=== PATIENT | female | born 1980 | race Caucasian/White ===

== ENCOUNTER 2017-03-29 01:03 | Emergency (ER) | payer OTHER ==
[2017-03-29 01:33] VITALS: BP 148/88; PULSE 66; TEMP 97.5; BMI 26.6
[2017-03-29] MEDS ORDERED: IBUPROFEN 400 MG TABLET (FP) PO ONE ×2 (01:47→02:04)
[2017-03-29] MEDS ORDERED: PENICILLIN V POTASSIUM 500 MG TABLET PO ONE (01:47)
--- NOTE | 2017-03-29 01:51 | PDOC ---
History of Present Illness - General History Source: Patient <Rikki Simons - Last Filed: 03/29/17 01:46> - General History Source: Patient Exam Limitations: No Limitations - History of Present Illness Initial Comments: 03/29/17 01:53 The patient is a 37-year-old female, with no significant past medical history, who presents to the ED with a toothache. On exam patient points to the right side of her upper/lower face posteriorly as the site of her pain. Her last menstrual period was last month and she does not think she is . She denies having any other symptoms. PCP: Dr. Edgar <Trixie Carvajal - Last Filed: 03/29/17 01:55> - General Chief Complaint: Toothache Stated Complaint: TOOTHACHE Time Seen by Provider: 03/29/17 01:42 Past History - Psycho/Social/Smoking Cessation Hx Suicidal Ideation: No Smoking History: Never smoked Have you smoked in the past 12 months: No Information on smoking cessation initiated: No Hx Alcohol Use: No Drug/Substance Use Hx: No Substance Use Type: Alcohol <Rikki Simons - Last Filed: 03/29/17 01:46> <Trixie Carvajal - Last Filed: 03/29/17 01:55> - Past Medical History Allergies/Adverse Reactions: Allergies Allergy/AdvReac Type Severity Reaction Status Date / Time No Known Allergies Allergy Verified 11/18/14 17:18 Home Medications: Ambulatory Orders Ibuprofen 800 mg PO TID #30 tablet 03/29/17 Oxycodone HCl/Acetaminophen [Percocet 5-325 mg Tablet] 1 - 2 tab PO Q6H #20 tablet MDD 4 03/29/17 Penicillin V Potassium [Pen Vee K -] 500 mg PO TID #30 tablet 03/29/17 Review of Systems - Review of Systems Able to Perform ROS?: Yes Comments:: 03/29/17 01:54 CONSTITUTIONAL: Absent: fever, no chills, no fatigue EYES: Absent: visual changes ENT: Present: toothache Absent: ear pain, no sore throat CARDIOVASCULAR: Absent: chest pain, no palpitations RESPIRATORY: Absent: cough, no SOB GI: Absent: abdominal pain, no nausea, no vomiting, no constipation, no diarrhea GENITOURINARY: Absent: dysuria, no frequency, no hematuria MUSKULOSKELETAL: Absent: back pain, no arthralgia, no myalgia SKIN: Absent: rash NEURO: Absent: headache <Trixie Carvajal - Last Filed: 03/29/17 01:55> *Physical Exam - Vital Signs Last Vital Signs Temp Pulse Resp BP Pulse Ox 97.5 F L 66 14 148/88 100 03/29/17 01:30 03/29/17 01:30 03/29/17 01:30 03/29/17 01:30 03/29/17 01:30 <Rikki Simons - Last Filed: 03/29/17 01:46> - Vital Signs Last Vital Signs Temp Pulse Resp BP Pulse Ox 97.5 F L 66 14 148/88 100 03/29/17 01:30 03/29/17 01:30 03/29/17 01:30 03/29/17 01:30 03/29/17 01:30 - Physical Exam Comments: 03/29/17 01:54 GENERAL: Well-appearing, well-nourished. No apparent distress. HEENT: Normocephalic, atraumatic. PERRL, EOM intact. +Erythema of right lower molar region CARDIOVASCULAR: Normal S1, S2. Regular rate and rhythm. PULMONARY: Clear to auscultation bilaterally. ABDOMEN: Soft, non-distended, non-tender. EXTREMITIES: Normal ROM in all four extremities. No gross deformities. SKIN: Warm, dry. No rash NEUROLOGICAL: No focal neurological deficits. <Trixie Carvajal - Last Filed: 03/29/17 01:55> Medical Decision Making - Medical Decision Making 03/29/17 01:52 Dr. Simons: The scribe's documentation has been prepared under my direction and personally reviewed by me in its entirery. I confirm that the note above accurately reflects all work, treatment, procedures, and medical decision making performed by me. <Rikki Simons - Last Filed: 03/29/17 01:46> *DC/Admit/Observation/Transfer - Discharge Dispostion Admit: No <Rikki Simons - Last Filed: 03/29/17 01:46> - Attestations Scribe Attestion: 03/29/17 01:55 Documentation prepared by Trixie Carvajal, acting as medical device assembler for Rikki Simons MD. <Trixie Carvajal - Last Filed: 03/29/17 01:55> Diagnosis at time of Disposition: Pain, dental - Discharge Dispostion Disposition: HOME - Prescriptions Prescriptions: Ibuprofen 800 mg PO TID #30 tablet Penicillin V Potassium [Pen Vee K -] 500 mg PO TID #30 tablet Oxycodone HCl/Acetaminophen [Percocet 5-325 mg Tablet] 1 - 2 tab PO Q6H #20 tablet MDD 4 - Referrals Referrals: Louisa Mcfarland MD [Primary Care Provider] - - Patient Instructions Printed Discharge Instructions: DI for Dental Pain Additional Instructions: Please follow up with your dentist as soon as possible. Take medication as directed.
== END 2017-03-29 02:17 | disposition home or self-care (01) ==
LOC: JER 01:03
DX: K08.89 Other specified disorders of teeth and supporting structures (principal)
CPT/HCPCS: 99282-25

== ENCOUNTER 2017-06-13 18:46 | Emergency (ER) | payer OTHER ==
[2017-06-13 18:57] VITALS: BP 125/77; PULSE 85; TEMP 99.2; BMI 24.2
--- NOTE | 2017-06-13 19:34 | PDOC ---
History of Present Illness - General Chief Complaint: Pain Stated Complaint: CYST Time Seen by Provider: 06/13/17 19:34 Past History - Past Medical History Allergies/Adverse Reactions: Allergies Allergy/AdvReac Type Severity Reaction Status Date / Time No Known Allergies Allergy Verified 06/13/17 18:56 Home Medications: Ambulatory Orders Ibuprofen 800 mg PO TID #30 tablet 03/29/17 NK [No Known Home Medication] 03/29/17 Oxycodone HCl/Acetaminophen [Percocet 5-325 mg Tablet] 1 - 2 tab PO Q6H #20 tablet MDD 4 03/29/17 Penicillin V Potassium [Pen Vee K -] 500 mg PO TID #30 tablet 03/29/17 - Suicide/Smoking/Psychosocial Hx Smoking History: Never smoked Have you smoked in the past 12 months: No Hx Alcohol Use: No Drug/Substance Use Hx: No Substance Use Type: Alcohol *Physical Exam - Vital Signs Last Vital Signs Temp Pulse Resp BP Pulse Ox 99.2 F 85 20 125/77 100 06/13/17 18:52 06/13/17 18:52 06/13/17 18:52 06/13/17 18:52 06/13/17 18:52
[2017-06-13] MEDS ORDERED: morphine CARPU-JECT 2 MG/1 ML DISP.SYRIN IVPUSH ONE (19:46)
[2017-06-13] MEDS ORDERED: ONDANSETRON 4 MG/2 ML VIAL IVPUSH STA (19:46)
[2017-06-13] MEDS ORDERED: SODIUM CHLORIDE 1,000 ML IV STA (19:46)
--- NOTE | 2017-06-13 19:52 | PDOC ---
History of Present Illness - History of Present Illness Initial Comments: 06/13/17 19:52 The patient is a 37 year old female, with no significant past medical history, who presents to the emergency department with dysuria and diffuse abdominal pain for the past few weeks. She reports being evaluated yesterday at [facility] where her abdomen/pelvis CT revealed hemorrhagic ascites and masses around pelvis and abdomen. She presents from Dr. Howe office this evening for a second opinion after a doctor at [facility] reportedly told the patient she has cancer in her pelvis. She states the physicians at [facility] considered doing an exploratory laparotomy, however, the procedure was not done. She denies chest pain, shortness of breath, headache and dizziness. She denies fever, chills, nausea, vomit, diarrhea and constipation. She denies frequency, urgency and hematuria. Allergies: NKDA Past surgical history: none reported Social history: Pt denies tobacco use PCP - Dr. Mcfarland [facility] Tipper - Dr. Bustamante <Desiree Hassan - Last Filed: 06/13/17 23:42> - General History Source: Patient <RonakRikki - Last Filed: 06/13/17 23:50> - General Chief Complaint: Pain Stated Complaint: CYST Time Seen by Provider: 06/13/17 19:34 Past History <Desiree Hassan - Last Filed: 06/13/17 23:42> - Suicide/Smoking/Psychosocial Hx Smoking History: Never smoked Have you smoked in the past 12 months: No Hx Alcohol Use: No Drug/Substance Use Hx: No Substance Use Type: Alcohol <Rikki Simons - Last Filed: 06/13/17 23:50> - Past Medical History Allergies/Adverse Reactions: Allergies Allergy/AdvReac Type Severity Reaction Status Date / Time No Known Allergies Allergy Verified 06/13/17 18:56 Home Medications: Ambulatory Orders NK [No Known Home Medication] 03/29/17 Review of Systems - Review of Systems Able to Perform ROS?: Yes Comments:: 06/13/17 19:52 CONSTITUTIONAL: Absent: fever, chills, diaphoresis, generalized weakness, malaise, loss of appetite HEENT: Absent: rhinorrhea, nasal congestion, throat pain, throat swelling, difficulty swallowing, mouth swelling, ear pain, eye pain, visual Changes CARDIOVASCULAR: Absent: chest pain, syncope, palpitations, irregular heart rate, lightheadedness , peripheral edema RESPIRATORY: Absent: cough, shortness of breath, dyspnea with exertion, orthopnea, wheezing, stridor, hemoptysis GASTROINTESTINAL: +abdominal pain, Absent: abdominal distension, nausea, vomiting, diarrhea, constipation, melena, hematochezia GENITOURINARY: +dysuria, Absent: frequency, urgency, hesitancy, hematuria, flank pain, genital pain MUSCULOSKELETAL: Absent: myalgia, arthralgia, joint swelling SKIN: Absent: rash, itching, pallor HEMATOLOGIC/IMMUNOLOGIC: Absent: easy bleeding, easy bruising, lymphadenopathy, frequent infections ENDOCRINE: Absent: unexplained weight gain, unexplained weight loss, heat intolerance, cold intolerance NEUROLOGIC: Absent: headache, focal weakness or paresthesias, dizziness, unsteady gait, seizure, mental status changes, bladder or bowel incontinence PSYCHIATRIC: Absent: anxiety, depression, suicidal or homicidal ideation, hallucinations. <Desiree Hassan - Last Filed: 06/13/17 23:42> *Physical Exam - Vital Signs Last Vital Signs Temp Pulse Resp BP Pulse Ox 99.2 F 85 20 125/77 100 06/13/17 18:52 06/13/17 18:52 06/13/17 18:52 06/13/17 18:52 06/13/17 18:52 - Physical Exam Comments: 06/13/17 19:53 GENERAL: Well developed, well nourished. Awake and alert. No acute distress. HEENT: Normocephalic, atraumatic. PERRLA, EOMI. No conjunctival pallor. Sclera are non- icteric. Moist mucous membranes. Oropharynx is clear. NECK: Supple. Full ROM. No JVD. Carotid pulses 2+ and symmetric, without bruits. No thyromegaly. No lymphadenopathy. CARDIOVASCULAR: Regular rate and rhythm. No murmurs, rubs, or gallops. Distal pulses are 2+ and symmetric. PULMONARY: No evidence of respiratory distress. Lungs clear to auscultation bilaterally. No wheezing, rales or rhonchi. ABDOMINAL: +Diffuse abdominal tenderness to palpation. No rebound or guarding. Soft. Non- distended. No organomegaly. Normoactive bowel sounds. MUSCULOSKELETAL Normal range of motion at all joints. No bony deformities or tenderness. No CVA tenderness. EXTREMITIES: No cyanosis. No clubbing. No edema. No calf tenderness. SKIN: Warm and dry. Normal capillary refill. No rashes. No jaundice. NEUROLOGICAL: Alert, awake, appropriate. Cranial nerves 2-12 intact. Normoreflexic in the upper and lower extremities. Normal speech. Toes are down-going bilaterally. Gait is normal without ataxia. PSYCHIATRIC: Cooperative. Good eye contact. Appropriate mood and affect. <Desiree Hassan - Last Filed: 06/13/17 23:42> - Vital Signs Last Vital Signs Temp Pulse Resp BP Pulse Ox 99.2 F 85 20 125/77 100 06/13/17 18:52 06/13/17 18:52 06/13/17 18:52 06/13/17 18:52 06/13/17 18:52 <Rikki Simons - Last Filed: 06/13/17 23:50> ED Treatment Course - LABORATORY CBC & Chemistry Diagram: 06/13/17 20:05 06/13/17 20:05 - RADIOLOGY Radiograph Interpretation: EXAM#: TYPE/EXAM: RESULT: [id number] CT/ABDOMEN PELVIS CT WITH CONTR Abdomen and pelvis CT (with contrast) Clinical impression diffuse abdominal pain, evaluate for small bowel obstruction, mass Multiplanar imaging was performed utilizing intravenous as well as oral contrast. No prior CT studies are available at this facility for direct comparison. No evidence of pneumoperitoneum, or bowel obstruction. A very small amount of free fluid is seen within the pelvic cul-de-sac. Within the mid and posterior thirds of the lower pelvis note is made of increased soft tissue density with obscuration of the uterine contour. Alternatively the patient may be status post hysterectomy. The urinary bladder demonstrates no obvious intrinsic or extrinsic pathology. No definite lymphadenopathy is identified. There is no CT evidence of acute appendicitis or diverticulitis. The liver, spleen, pancreas, gallbladder, adrenal glands and kidneys demonstrate no discrete pathology. There is no aortic aneurysm. The visualized osseous structures demonstrate no obvious CT evidence of acute pathology or neoplastic disease. Impression: Increased soft tissue density is seen within the lower pelvis in the expected region of the uterus. This finding may be on the basis of known/suspected neoplastic disease. Alternatively the patient may be status post hysterectomy with abnormal soft tissue density at the prior site of the uterus. Correlation with the results of prior imaging studies is suggested. A very small amount of free fluid is seen within the lower pelvis posteriorly. No definite CT findings of acute pathology are identified. Reported By: Hansel Sarah MD 06/13/17 [id number] <Desiree Hassan - Last Filed: 06/13/17 23:42> - LABORATORY CBC & Chemistry Diagram: 06/13/17 20:05 06/13/17 20:05 - RADIOLOGY Radiology Studies Ordered: Category Date Time Status ABDOMEN & PELVIS CT WITH CONTR [CT] Stat CT Scan 06/13/17 19:45 Ordered <Rikki Simons - Last Filed: 06/13/17 23:50> Medical Decision Making - Medical Decision Making 06/13/17 23:31 Dr. Cortez was paged via phone answering service at this time requesting a call back for doctor to doctor consult. 06/13/17 23:40 The patient's case was discussed with Dr. Cortez, [facility], at this time. Dr. Cortez suggests the patient be referred to [address] [place] [address] for follow-up. <Desiree Hassan - Last Filed: 06/13/17 23:42> - Medical Decision Making 06/13/17 23:49 Dr. Simons: The scribe's documentation has been prepared under my direction and personally reviewed by me in its entirery. I confirm that the note above accurately reflects all work, treatment, procedures, and medical decision making performed by me. <Rikki Simons - Last Filed: 06/13/17 23:50> *DC/Admit/Observation/Transfer - Attestations Scribe Attestion: 06/13/17 19:54 Documentation prepared by Desiree Hassan, acting as medical records custodian for Rikki Simons DO <Desiree Hassan - Last Filed: 06/13/17 23:42> - Discharge Dispostion Admit: No <Rikki Simons - Last Filed: 06/13/17 23:50> Diagnosis at time of Disposition: Abdominal pain, Pelvic cancer - Discharge Dispostion Disposition: HOME Condition at time of disposition: Stable - Referrals Referrals: Louisa Mcfarland MD [Primary Care Provider] - - Patient Instructions Printed Discharge Instructions: DI for Pelvic Pain Additional Instructions: Please follow up with your Investor Relations Coordinator for care and treatment.
[2017-06-13 20:14] LABS: BASOPHIL 0.8 % (0-2.0); EOSINOPHIL 11.5 % (0-4.5); MCH 30.1 pg (25.7-33.7); MCHC 33.4 g/dl (32.0-36.0); MEAN PLT VOLUME 7.6 fl (7.5-11.1); NEUTROPHILS 59.8 % (42.8-82.8); PLATELET COUNT 249 K/MM3 (134-434); RDW 12.8 % (11.6-15.6); WHITE BLOOD COUNT 6.9 K/mm3 (4.0-10.0)
[2017-06-13] MEDS ORDERED: morphine CARPU-JECT 10 MG/1 ML DISP.SYRIN ONE (20:16)
[2017-06-13] MEDS ORDERED: ONDANSETRON 4 MG/2 ML VIAL ONE (20:17)
[2017-06-13 20:29] LABS: URINE APPEARANCE SLCLOUDY; URINE BILIRUBIN NEGATIVE (NEGATIVE); URINE BLOOD NEGATIVE (NEGATIVE); URINE COLOR YELLOW; URINE GLUCOSE (UA) NEGATIVE (NEGATIVE); URINE KETONE NEGATIVE (NEGATIVE); URINE NITRITE NEGATIVE (NEGATIVE); URINE PROTEIN NEGATIVE (NEGATIVE); URINE UROBILINOGEN 4.0 E.U/dl mg/dL (0.2-1.0)
[2017-06-13 20:30] LABS: INR 1.11 (0.82-1.09); PROTHROMBIN TIME (PATIENT) 12.2 SEC (9.98-11.88)
[2017-06-13 20:40] LABS: ALBUMIN 3.5 g/dl (3.4-5.0); ANION GAP 4 (8-16); CALCIUM 8.8 mg/dL (8.5-10.1); CO2 31 mmol/L (21-32); CREATININE 0.9 mg/dL (0.55-1.02); GLUCOSE,RANDOM 83 mg/dL (74-106); SGOT/AST 12 U/L (15-37); SGPT/ALT 18 U/L (12-78)
[2017-06-13 20:42] LABS: ALK PHOS 59 U/L (45-117); BILIRUBIN,TOTAL 0.5 mg/dL (0.2-1.0); TOT PROT 6.9 g/dl (6.4-8.2); URINE LEUK ESTERASE 3+ (NEGATIVE)
[2017-06-13 20:43] LABS: URINE MUCUS RARE; URINE RBC 10 /hpf (0-3); URINE WBC 2 /hpf (3-5)
--- NOTE | 2017-06-17 13:42 | PDOC ---
Patient Follow-up (Call Back) - Post ED Follow - Up Condition at time of discharge: Stable Disposition at time of original discharge: HOME Reason for Call Back: Abnwl. Microbiology (Patient's urine culture showed positive for strep group B. Patient has no previous urine culture on file. Patient had sensitivity to Levaquin. Prescription sent to [facility] which patient is aware she needs to start tomorrow since pharmacy is not open presently.)
== END 2017-06-13 23:57 | disposition home or self-care (01) ==
LOC: JER 18:46
PROC: 3E033NZ Introduction of Analgesics, Hypnotics, Sedatives into Peripheral Vein, Percutaneous Approach (ICD-10-PCS; principal; 2017-06-13)
PROC: 3E033GC Introduction of Other Therapeutic Substance into Peripheral Vein, Percutaneous Approach (ICD-10-PCS; 2017-06-13)
DX: R10.84 Generalized abdominal pain (principal); C79.89 Secondary malignant neoplasm of other specified sites; Z90.79 Acquired absence of other genital organ(s)
CPT/HCPCS: 36415; 74177-TC; 80053; 81003; 81015; 84703; 85025; 85610; 86850; 86900; 86901; 87086; 87186; 96374; 96375; 99283-25; Q9967

== ENCOUNTER 2017-09-21 15:33 | Emergency (ER) | payer OTHER ==
[2017-09-21 15:43] VITALS: TEMP 98.5; BMI 25.0
[2017-09-21 16:20] LABS: HCG,QUALITATIVE URINE NEGATIVE
[2017-09-21 16:22] LABS: BASO % 0.8 % (0-2.0); EOS % 6.1 % (0-4.5); HEMATOCRIT 43.8 % (32.4-45.2); HEMOGLOBIN 14.6 GM/dL (10.7-15.3); LYMPH % 20.3 % (8-40); MCH 29.6 pg (25.7-33.7); MCHC 33.3 g/dl (32.0-36.0); MEAN CELL VOLUME 88.9 fl (80-96); MEAN PLT VOLUME 7.6 fl (7.5-11.1); MONO % 5.3 % (3.8-10.2); NEUT % 67.5 % (42.8-82.8); PLATELET COUNT 354 K/MM3 (134-434); RBC 4.93 M/mm3 (3.60-5.2); RDW 14.3 % (11.6-15.6); WHITE BLOOD COUNT 9.3 K/mm3 (4.0-10.0)
[2017-09-21 16:26] LABS: URINE APPEARANCE SLCLOUDY; URINE BILIRUBIN NEGATIVE (NEGATIVE); URINE BLOOD NEGATIVE (NEGATIVE); URINE COLOR YELLOW; URINE GLUCOSE (UA) NEGATIVE (NEGATIVE); URINE KETONE TRACE (NEGATIVE); URINE LEUK ESTERASE NEGATIVE (NEGATIVE); URINE NITRITE NEGATIVE (NEGATIVE); URINE UROBILINOGEN NEGATIVE mg/dL (0.2-1.0)
--- NOTE | 2017-09-21 16:50 | PDOC ---
Attending Attestation - Resident Resident Name: Ga Loera - HPI HPI: 09/22/17 01:37 Pt presents to the ED complaining of several hours of sharp, pleuritic chest pain and mild shortness of breath. Denies other complaints. - Physicial Exam PE: 09/22/17 01:38 Agree with resident exam. Patient is in no acute distress and lungs are clear. Tachycardia resolved on my exam. - Medical Decision Making 09/22/17 01:39 Patient presents to the ED complaining of sharp, pleuritic chest pain. HEART score is 0. Low risk for PE, d dimer is negative. Most likely muscular chest pain--will discharge home with follow up.
[2017-09-21 16:51] LABS: URINE PROTEIN 1+ (NEGATIVE)
[2017-09-21 16:53] LABS: EPI CELLS FEW /HPF (FEW); URINE BACTERIA RARE /hpf (NONE SEEN); URINE MUCUS RARE
[2017-09-21] MEDS ORDERED: KETOROLAC TROMETHAMINE 60 MG/2 ML VIAL IM ONE (16:54)
[2017-09-21 16:58] LABS: ALBUMIN 4.1 g/dl (3.4-5.0); ALK PHOS 76 U/L (45-117); ANION GAP 5 (8-16); BILIRUBIN,TOTAL 0.4 mg/dL (0.2-1.0); BLOOD UREA NITROGEN 8 mg/dL (7-18); CALCIUM 8.6 mg/dL (8.5-10.1); CHLORIDE 103 mmol/L (98-107); CO2 29 mmol/L (21-32); CREATININE 0.8 mg/dL (0.55-1.02); GLUCOSE,RANDOM 75 mg/dL (74-106); LIPASE 86 U/L (73-393); POTASSIUM 3.9 mmol/L (3.5-5.1); SGOT/AST 13 U/L (15-37); SGPT/ALT 22 U/L (12-78); SODIUM 137 mmol/L (136-145); TOT PROT 7.5 g/dl (6.4-8.2)
--- NOTE | 2017-09-21 16:59 | PDOC ---
History of Present Illness - General Chief Complaint: Chest Pain Stated Complaint: BLOOD PRESSURE PROBLEM Time Seen by Provider: 09/21/17 15:38 - History of Present Illness Initial Comments: 09/21/17 17:15 The patient is a 37 year old female with no significant PMH who presents for evaluation of chest pain and SOB. The patient reports onset of sharp left sided chest pain worse with movement beginning earlier this morning. She states that the pain continued throughout the day with sudden associated heart palpitations, SOB, and lightheadedness 1 hour prior to presentation prompting her presentation to the ED for evaluation. She states that she has not had symptoms like this in the past and was concerned that she was having a heart attack. She denies any recent long travel or leg swelling. She denies fevers, chills, abdominal pain, nausea, vomiting, or changes with urination or bowel movements. Past History - Past Medical History Allergies/Adverse Reactions: Allergies Allergy/AdvReac Type Severity Reaction Status Date / Time No Known Allergies Allergy Verified 09/21/17 15:38 Home Medications: Ambulatory Orders NK [No Known Home Medication] 09/21/17 COPD: No Other medical history: DENIES. - Suicide/Smoking/Psychosocial Hx Smoking History: Never smoked Have you smoked in the past 12 months: No Hx Alcohol Use: No Drug/Substance Use Hx: No Substance Use Type: Alcohol Review of Systems - Review of Systems Comments:: 09/21/17 17:19 Constitutional: No fevers, chills, fatigue, malaise HEENT: No Rhinorrhea, nasal congestion, visual changes Cardiovascular: Chest pain, palpitations, lightheadedness. No syncope, Respiratory: SOB. No Cough, Hemoptysis, Gastrointestinal: No Abdominal pain, Nausea, Vomiting, Constipation, Diarrhea, Melena Genitourinary: No Dysuria, Frequency, Urgency, Hesitancy, Hematuria, Flank pain Musculoskeletal: No Myalgia, arthralgia Skin: No rashes, itching, bruising, pallor Neurologic: No Headache, Dizziness, Numbness, Weakness, or Tingling Psychiatric: No Hallucinations. No SI or HI *Physical Exam - Vital Signs Last Vital Signs Temp Pulse Resp BP Pulse Ox 98.5 F 117 H 19 155/104 100 09/21/17 15:38 09/21/17 15:38 09/21/17 15:38 09/21/17 15:38 09/21/17 15:38 - Physical Exam Comments: 09/21/17 17:20 General Appearance: Nourished. No Apparent Distress HEENT: EOMI, JOSELUIS. No Pharyngeal Erythema, Tonsillar Exudate, Tonsillar Erythema Neck: No Cervical Lymphadenopathy Respiratory/Chest: Lungs Clear, Normal Breath Sounds. Reproducible tenderness to palpation of the left chest. No Crackles, Rales, Rhonchi, Wheezing Cardiovascular: Regular Rhythm, Regular Rate. No Murmur, Gallops, Rubs Gastrointestinal/Abdominal: Normal Bowel Sounds, Soft. No Guarding, Rebound, Tenderness Musculoskeletal: No CVA Tenderness Extremity: Normal Capillary Refill Integumentary: Normal Color, Dry, Warm Neurologic: Fully Oriented, Alert, Normal Mood/Affect, Normal Response, Heart Score/ECG Review #1 ECG reviewed & interpreted by me at: 17:24 (Sinus Tachycardia) General ECG Interpretation: Sinus Rhythm, Normal Intervals, No acute ischemic changes ED Treatment Course - LABORATORY CBC & Chemistry Diagram: 09/21/17 15:50 09/21/17 15:50 - ADDITIONAL ORDERS Additional order review: Laboratory Results 09/21/17 15:55 Urine Color Yellow Urine Appearance Slcloudy Urine pH 8.0 Ur Specific [place] 1.025 Urine Protein 1+ H Urine Glucose (UA) Negative Urine Ketones Trace H Urine Blood Negative Urine Nitrite Negative Urine Bilirubin Negative Urine Urobilinogen Negative Ur Leukocyte Esterase Negative Urine HCG, Qual Negative 09/21/17 15:50 RBC 4.93 D MCV 88.9 MCHC 33.3 RDW 14.3 D MPV 7.6 Neutrophils % 67.5 Lymphocytes % 20.3 Monocytes % 5.3 Eosinophils % 6.1 H Basophils % 0.8 Medical Decision Making - Medical Decision Making 09/21/17 17:21 The patient is a 37 year old female with no significant PMH who presents for evaluation of chest pain and SOB. Differential includes but is not limited to: Musculoskeletal, Anxiety, PE, acs, infectious, metabolic derangement. Given the patient's reproducible tenderness on exam and history, it is likely her symptoms are due to a combination of musculoskeletal pain and anxiety. However we will obtain a cbc, cmp, d-dimer, torponin, ekg, ua, urine preg to evaluate for other etiologies. We will treat the patient with toradol and continue to monitor and reassess. 09/21/17 18:46 CBC, cmp, d-dimer, troponin, ua, urine preg are unremarkable. The patient reports improvement in her symptoms. The patient's symptoms are likely due to musculoskeletal pain. We are comfortable discharging the patient home at this time with primary care provider follow up. We discussed the results and the plan with the patient who voiced understanding and is agreeable with the plan. *DC/Admit/Observation/Transfer Diagnosis at time of Disposition: Chest pain Qualifiers: Chest pain type: intercostal pain Qualified Code(s): R07.82 - Intercostal pain - Discharge Dispostion Disposition: HOME Condition at time of disposition: Improved Admit: No - Referrals Referrals: Louisa Mcfarland MD [Primary Care Provider] - - Patient Instructions Printed Discharge Instructions: DI for Atypical Chest Pain Additional Instructions: Please return to the ER if you experience concerning or worsening symptoms including worsening pain or difficulty breathing. Your lab results were normal here in the ER. Your symptoms are likely due to muscle strain. Please call to schedule a follow up appointment with your primary care provider to discuss your ER visit and further management of your symptoms within 1 week. - Post Discharge Activity
[2017-09-21] MEDS ORDERED: KETOROLAC TROMETHAMINE 60 MG/2 ML VIAL ONE (17:07)
[2017-09-21] MEDS ORDERED: MECLIZINE HCL 25 MG TABLET (FP) PO ONE (18:44)
[2017-09-21] MEDS ORDERED: MECLIZINE HCL 25 MG TABLET (FP) ONE (18:49)
[2017-09-21 18:59] VITALS: BP 134/88; PULSE 97
--- NOTE | 2017-09-22 17:02 | EKG ---
Test Reason : Blood Pressure : / mmHG Vent. Rate : 108 BPM Atrial Rate : 108 BPM P-R Int : 168 ms QRS Dur : 076 ms QT Int : 338 ms P-R-T Axes : 050 017 063 degrees QTc Int : 452 ms SINUS TACHYCARDIA POSSIBLE LEFT ATRIAL ENLARGEMENT SEPTAL INFARCT , AGE UNDETERMINED ABNORMAL ECG NO PREVIOUS ECGS AVAILABLE Confirmed by IKE SHETTY MD ([id number]) on 09/22/2017 5:01:45 PM Referred By: Confirmed By:IKE SHETTY MD
== END 2017-09-21 18:59 | disposition home or self-care (01) ==
LOC: JER 15:33
PROC: 3E0233Z Introduction of Anti-inflammatory into Muscle, Percutaneous Approach (ICD-10-PCS; principal; 2017-09-21)
DX: R07.82 Intercostal pain (principal); I10 Essential (primary) hypertension
CPT/HCPCS: 36415; 80053; 81003; 81015; 82550; 83690; 84484; 84703; 85025; 85379; 93005; 93010; 96372; 99283-25

== ENCOUNTER 2018-01-01 08:54 | Emergency (ER) | payer OTHER ==
[2018-01-01 09:10] VITALS: BP 119/79; PULSE 84; TEMP 98.4; BMI 25.7
[2018-01-01] MEDS ORDERED: DEXAMETHASONE SOD PHOSPHATE 10 MG/1 ML VIAL ONE (09:27)
[2018-01-01] MEDS ORDERED: ACETAMINOPHEN 500 MG TABLET (FP) ONE (09:27)
[2018-01-01] MEDS ORDERED: ACETAMINOPHEN 500 MG TABLET (FP) PO ONE (09:31)
[2018-01-01] MEDS ORDERED: DEXAMETHASONE LIQUID 0.5 MG/5 ML 240 ML BULK BOTTLE PO ONE (09:31)
--- NOTE | 2018-01-01 09:38 | PDOC ---
History of Present Illness - General Chief Complaint: Sore Throat Stated Complaint: Sore Throat Time Seen by Provider: 01/01/18 09:09 History Source: Patient Exam Limitations: No Limitations - History of Present Illness Initial Comments: 01/01/18 09:32 Patient is a 37-year-old female history of hypertension on medication, name unknown no allergies. She presents with sore throat, dysphagia and generalized body aches since yesterday. Denies any chest pain or shortness of breath. Able to tolerate fluids. Past Medical History: Denies. Allergies: No known allergies Family History: Non-contributory Social History: Denies smoking, alcohol use, or IVDU Review of Systems GENERAL/CONSTITUTIONAL: Fever No weakness. No weight change. HEAD, EYES, EARS, NOSE AND THROAT: No change in vision. No ear pain or discharge. Sore throat and dysphagia CARDIOVASCULAR: No chest pain or shortness of breath. RESPIRATORY: No cough, wheezing, or hemoptysis. GASTROINTESTINAL: No nausea, vomiting, diarrhea or constipation. No rectal bleeding. GENITOURINARY: No dysuria, frequency, or change in urination. MUSCULOSKELETAL: No joint or muscle swelling or pain. No neck or back pain. SKIN AND BREASTS: No rash or easy bruising. NEUROLOGIC: No headache, vertigo, loss of consciousness, or loss of sensation. PSYCHIATRIC: No depression or anxiety. ENDOCRINE: No increased thirst. No abnormal weight change. HEMATOLOGIC/LYMPHATIC: No anemia, easy bleeding, or history of blood clots. ALLERGIC/IMMUNOLOGIC: No hives or skin allergy. No latex allergy. Physical Exam: GENERAL: The patient is awake, alert, and fully oriented, in no acute distress. EYES: Pupils equal, round and reactive to light, extraocular movements intact, sclera anicteric, conjunctiva clear. ENT: Ears normal, nares patent, bilateral tonsillar exudates with edema, erythema to posterior pharynx Moist mucous membranes. No uvula deviation NECK: Normal range of motion, supple without lymphadenopathy, JVD, or masses. LUNGS: Breath sounds equal, clear to auscultation bilaterally. No wheezes, and no crackles. HEART: Regular rate and rhythm, normal S1 and S2 without murmur, rub or gallop. ABDOMEN: Soft, nontender, normoactive bowel sounds. No guarding, no rebound. No masses. No bruising or abrasions MUSCULOSKELETAL: Normal range of motion, no edema. No clubbing or cyanosis. No cords, erythema, or tenderness. No CVA Tenderness with fist. NEUROLOGICAL: Cranial nerves II through XII grossly intact. Normal speech, normal gait. SKIN: Warm, Dry, normal turgor, no rashes or lesions noted. Past History - Past Medical History Allergies/Adverse Reactions: Allergies Allergy/AdvReac Type Severity Reaction Status Date / Time No Known Allergies Allergy Verified 01/01/18 09:07 Home Medications: Ambulatory Orders Amoxicillin - [Amoxicillin 500mg Capsule -] 500 mg PO BID #20 capsule 01/01/18 COPD: No DVT: No - Immunization History Immunization Up to Date: Yes - Suicide/Smoking/Psychosocial Hx Smoking History: Never smoked Have you smoked in the past 12 months: No Information on smoking cessation initiated: No Hx Alcohol Use: No Drug/Substance Use Hx: No Substance Use Type: Alcohol *Physical Exam - Vital Signs Last Vital Signs Temp Pulse Resp BP Pulse Ox 98.4 F 84 18 119/79 99 01/01/18 09:07 01/01/18 09:07 01/01/18 09:07 01/01/18 09:07 01/01/18 09:07 Medical Decision Making - Medical Decision Making 01/01/18 09:34 A/P: Patient here with dysphagia, sore throat generalized body aches. Patient with clinical signs of strep, absence of cough, fever, sore throat. Decadron 10 mg by mouth and Tylenol 1 g given will DC on amoxicillin, change toothbrush in 3 days, warm saltwater gargles. Tylenol or Motrin for fever. *DC/Admit/Observation/Transfer Diagnosis at time of Disposition: Pharyngitis Qualifiers: Pharyngitis/tonsillitis etiology: unspecified etiology Qualified Code(s): J02.9 - Acute pharyngitis, unspecified Acute tonsillitis Qualifiers: Streptococcal tonsillitis recurrence: non-recurrent - Discharge Dispostion Disposition: HOME Condition at time of disposition: Stable Admit: No - Prescriptions Prescriptions: Amoxicillin - [Amoxicillin 500mg Capsule -] 500 mg PO BID #20 capsule - Referrals Referrals: Louisa Mcfarland MD [Primary Care Provider] - - Patient Instructions Printed Discharge Instructions: DI for Pharyngitis/Tonsillopharyngitis -- Adult Additional Instructions: 1. Increase fluid. 2. Pedialyte or Gatorade. 3. Please change toothbrush within 3 days of starting antibiotics. 4. Warm saltwater gargles. 5. Please follow up with PMD in 3 days if symptoms not resolving. 6. Please return to the ER unable to drink or eat, increased fever or other concerns - Post Discharge Activity Forms/Work/School Notes: Back to Work
== END 2018-01-01 09:46 | disposition home or self-care (01) ==
LOC: JERFT 08:54
DX: J02.9 Acute pharyngitis, unspecified (principal); J03.90 Acute tonsillitis, unspecified; I10 Essential (primary) hypertension
CPT/HCPCS: 99281-25

== ENCOUNTER 2021-08-24 18:28 | Emergency (ER) | payer OTHER ==
[2021-08-24 18:53] VITALS: BP 116/81; PULSE 70; TEMP 97.8; BMI 27.4
[2021-08-24] MEDS ORDERED: KETOROLAC TROMETHAMINE 60 MG/2 ML VIAL IM ONE (20:52)
[2021-08-24] MEDS ORDERED: METHOCARBAMOL 500 MG TABLET PO ONE (20:52)
[2021-08-24] MEDS ORDERED: LIDOCAINE 5% TOPICAL PATCH TP ONE (20:52)
[2021-08-24] MEDS ORDERED: METHOCARBAMOL 500 MG TABLET ONE (21:08)
[2021-08-24] MEDS ORDERED: LIDOCAINE 5% TOPICAL PATCH ONE (21:09)
[2021-08-24] MEDS ORDERED: KETOROLAC TROMETHAMINE 30 MG/1 ML VIAL ONE (21:09)
[2021-08-24 21:51] LABS: PH,URINE 8.5 (5.0-8.0); URINE APPEARANCE CLEAR; URINE BILIRUBIN NEGATIVE (NEGATIVE); URINE COLOR YELLOW; URINE GLUCOSE (UA) NEGATIVE (NEGATIVE); URINE KETONE NEGATIVE (NEGATIVE); URINE LEUK ESTERASE NEGATIVE (NEGATIVE); URINE NITRITE NEGATIVE (NEGATIVE); URINE PROTEIN NEGATIVE (NEGATIVE)
[2021-08-24 21:54] LABS: HCG,QUALITATIVE URINE Negative
[2021-08-25] MEDS ORDERED: LIDOCAINE PATCH REMOVAL MC SCH (09:00)
== END 2021-08-24 22:41 | disposition home or self-care (01) ==
LOC: JER 18:28
PROC: 3E0233Z Introduction of Anti-inflammatory into Muscle, Percutaneous Approach (ICD-10-PCS; principal; 2021-08-24)
DX: M54.42 Lumbago with sciatica, left side (principal)
CPT/HCPCS: 72100-TC-FY; 81003; 84703; 87086; 99284-25

== ENCOUNTER 2023-11-26 23:17 | Observation (INO) | payer OTHER ==
[2023-11-26 23:25] VITALS: BMI 24.3
[2023-11-27] MEDS ORDERED: IBUPROFEN 400 MG TABLET (FP) PO ONE (00:55)
[2023-11-27] MEDS: IBUPROFEN 400 MG TABLET (FP) PO ONE (00:58)
[2023-11-27 01:00] LABS: BASO % 1.1 % (0-2.0); EOS % 5.9 % (0-4.5); HEMATOCRIT 38.1 % (32.4-45.2); HEMOGLOBIN 13.2 GM/dL (10.7-15.3); LYMPH % 32.6 % (8-40); MCH 30.5 pg (25.7-33.7); MCHC 34.5 g/dl (32.0-36.0); MEAN CELL VOLUME 88.3 fl (80-96); MEAN PLT VOLUME 7.1 fl (7.5-11.1); MONO % 5.8 % (3.8-10.2); NEUT % 54.6 % (42.8-82.8); PLATELET COUNT 314 10^3/uL (134-434); RBC 4.31 M/mm3 (3.60-5.2); RDW 13.1 % (11.6-15.6); WHITE BLOOD COUNT 7.1 K/mm3 (4.0-10.0)
[2023-11-27 01:08] LABS: PROTHROMBIN TIME (PATIENT) 11.6 SEC (9.7-13.0)
[2023-11-27 01:11] LABS: ACTIVATED PTT 32.3 SECONDS (25.2-36.5)
[2023-11-27 01:22] LABS: PH,URINE 6.5 (5.0-8.0); URINE APPEARANCE CLEAR; URINE BILIRUBIN NEGATIVE (NEGATIVE); URINE COLOR YELLOW; URINE GLUCOSE (UA) NEGATIVE (NEGATIVE); URINE KETONE NEGATIVE (NEGATIVE); URINE LEUK ESTERASE NEGATIVE (NEGATIVE); URINE NITRITE NEGATIVE (NEGATIVE); URINE PROTEIN NEGATIVE (NEGATIVE); URINE UROBILINOGEN 0.2 mg/dL (0.2-1.0)
[2023-11-27 01:25] LABS: POTASSIUM 3.8 mmol/L (3.5-5.1)
[2023-11-27 01:28] LABS: ALBUMIN 3.3 g/dl (3.4-5.0); BLOOD UREA NITROGEN 12.8 mg/dL (7-18)
[2023-11-27 01:31] LABS: CREATININE 0.7 mg/dL (0.55-1.3)
[2023-11-27 01:33] LABS: BILIRUBIN,TOTAL 0.3 mg/dL (0.2-1); TOT PROT 6.6 g/dl (6.4-8.2)
[2023-11-27] MEDS: SODIUM CHLORIDE 0.9% 500 ML INFUS.BAG IV ONE (02:21)
[2023-11-27 07:00] LABS: EOS % 7.3 % (0-4.5); HEMATOCRIT 40.1 % (32.4-45.2); HEMOGLOBIN 13.3 GM/dL (10.7-15.3); LYMPH % 38.5 % (8-40); MCH 29.1 pg (25.7-33.7); MCHC 33.2 g/dl (32.0-36.0); MEAN CELL VOLUME 87.8 fl (80-96); MEAN PLT VOLUME 7.1 fl (7.5-11.1); MONO % 6.3 % (3.8-10.2); NEUT % 46.9 % (42.8-82.8); PLATELET COUNT 306 10^3/uL (134-434); RBC 4.56 M/mm3 (3.60-5.2); RDW 13.2 % (11.6-15.6); WHITE BLOOD COUNT 5.5 K/mm3 (4.0-10.0)
[2023-11-27 07:20] LABS: POTASSIUM 3.8 mmol/L (3.5-5.1)
[2023-11-27 07:27] LABS: ALBUMIN 3.2 g/dl (3.4-5.0); CALCIUM 8.6 mg/dL (8.5-10.1); MAGNESIUM 2.1 mg/dL (1.8-2.4)
[2023-11-27 07:31] LABS: BLOOD UREA NITROGEN 9.4 mg/dL (7-18); CREATININE 0.6 mg/dL (0.55-1.3)
[2023-11-27 07:32] LABS: BILIRUBIN,TOTAL 0.6 mg/dL (0.2-1); TOT PROT 6.3 g/dl (6.4-8.2)
[2023-11-27 07:33] LABS: PHOSPHOROUS 3.2 mg/dL (2.5-4.9)
[2023-11-27] MEDS: ACETAMINOPHEN 325 MG TABLET (FP) PO PRN (08:50)
[2023-11-27] MEDS: LOSARTAN 50MG/HCTZ 12.5MG 1 TAB PO SCH (09:01)
[2023-11-27] MEDS: ENOXAPARIN NA (PORCINE) 40 MG/0.4 ML DISP.SYRIN SQ SCH (09:01)
[2023-11-27 09:09] VITALS: BP 128/83; PULSE 66; RESP 17; TEMP 98.1
== END 2023-11-27 11:13 | disposition home or self-care (01) ==
LOC: JER 23:17 → JERBED 11-27 01:56
PROVIDERS: ADMIT Internal Medicine; ATTEND Nurse Practitioner Acute Care
PROC: 3E023GC Introduction of Other Therapeutic Substance into Muscle, Percutaneous Approach (ICD-10-PCS; principal; 2023-11-27)
PROC: 3E0337Z Introduction of Electrolytic and Water Balance Substance into Peripheral Vein, Percutaneous Approach (ICD-10-PCS; 2023-11-27)
DX: I10 Essential (primary) hypertension (principal); R07.9 Chest pain, unspecified; R42 Dizziness and giddiness; Z90.79 Acquired absence of other genital organ(s); D21.9 Benign neoplasm of connective and other soft tissue, unspecified; Z29.89 Encounter for other specified prophylactic measures; Z87.891 Personal history of nicotine dependence
CPT/HCPCS: 0241U-QW; 36415; 71045-TC-FY; 80053; 81003; 83735; 84100; 84443; 84484; 84703; 85025; 85610; 85730; 87086; 93005; 93010; 96372; 99285-25; G0378

== ENCOUNTER 2025-02-06 05:22 | Day surgery (SDC) | payer OTHER ==
[2025-02-04 11:56] VITALS: BMI 25.7
[2025-02-06] MEDS ORDERED: HEPARIN NA (PORCINE) 5,000 UNITS/ML 1ML VIAL ONE (07:50)
[2025-02-06] MEDS ORDERED: DEXAMETHASONE SOD PHOSPHATE 4 MG/1 ML VIAL ONE (07:53)
[2025-02-06] MEDS ORDERED: MIDAZOLAM HCL 2 MG/2 ML SINGLE DOSE VIAL ONE (07:53)
[2025-02-06] MEDS ORDERED: PROPOFOL 20 ML ONE (07:53)
[2025-02-06] MEDS ORDERED: ONDANSETRON 4 MG/2 ML VIAL ONE (07:53)
[2025-02-06] MEDS ORDERED: ROCURONIUM BROMIDE 50 MG/5 ML SYRINGE ONE (08:19)
[2025-02-06] MEDS: ceFAZolin SODIUM 1 GM VIAL IVPB ONE ×2 (08:27)
[2025-02-06] MEDS: BUPIVACAINE HCL/PF 0.25% (2.5MG/ML) 10 ML VIAL IJ ONE ×2 (08:38)
[2025-02-06] MEDS ORDERED: SUGAMMADEX SODIUM 200 MG/2 ML VIAL ONE (09:17)
[2025-02-06] MEDS ORDERED: oxyCODONE HCL 5 MG TABLET PO PRN (12:25)
[2025-02-06] MEDS: ACETAMINOPHEN 1000 MG/100 ML BAG IVPB ONE (12:28)
[2025-02-06 13:55] VITALS: RESP 18
[2025-02-06 14:44] VITALS: BP 100/62; PULSE 63; TEMP 97.5
== END 2025-02-06 14:25 | disposition home or self-care (01) ==
LOC: JASU-SURG 05:22
PROVIDERS: ATTEND Surgery
PROC: 0FT44ZZ Resection of Gallbladder, Percutaneous Endoscopic Approach (ICD-10-PCS; principal; 2025-02-06 08:00)
DX: K81.1 Chronic cholecystitis (principal)
CPT/HCPCS: 81025; 88304-TC; 94760

== ENCOUNTER 2025-04-29 07:59 | Emergency (ER) | payer OTHER ==
[2025-04-29 08:05] VITALS: TEMP 98.1; BMI 26.6
[2025-04-29] MEDS ORDERED: ACETAMINOPHEN INJECTION 100 ML ONE (08:33)
[2025-04-29] MEDS: ACETAMINOPHEN 1000 MG/100 ML BAG IVPB ONE (08:34)
[2025-04-29] MEDS: SODIUM CHLORIDE 1,000 ML IV STA (08:34)
[2025-04-29] MEDS ORDERED: FAMOTIDINE 20 MG/50 ML IVPB 20 MG/50 ML MG IVPB ONE (08:50)
[2025-04-29] MEDS: FAMOTIDINE 20 MG/50 ML IVPB 20 MG/50 ML MG IVPB ONE (08:51)
[2025-04-29 08:56] LABS: MCHC 33.8 g/dl (32.2-35.5); MEAN CELL VOLUME 87.8 fl (79.4-94.8); MEAN PLT VOLUME 9.0 fl (9.4-12.3); RDW 11.9 % (12.2-17.1)
[2025-04-29 09:20] LABS: INR 0.98 (0.83-1.09); PROTHROMBIN TIME (PATIENT) 10.8 SEC (9.7-13.0)
[2025-04-29 09:23] LABS: ACTIVATED PTT 30.9 SECONDS (25.2-36.5)
[2025-04-29 09:26] LABS: GLUCOSE,RANDOM 88.0 mg/dL (74-106); TOT PROT 6.4 g/dl (6.4-8.2)
[2025-04-29 09:27] LABS: CO2 28.0 mmol/L (21-32)
[2025-04-29 09:29] LABS: ALK PHOS 61.0 U/L (40-150)
[2025-04-29 09:32] LABS: CREATININE 0.69 mg/dL (0.55-1.3); SGOT/AST 17.0 U/L (5-34); SGPT/ALT 11.0 U/L (0-55)
[2025-04-29 09:59] LABS: HCV DIAGNOSTIC IN-HOUSE W/RFLX NON-REACTIVE (NONREACTIVE); HIV INTERPRETATION NEGATIVE (NEGATIVE)
[2025-04-29] MEDS ORDERED: SUCRALFATE 1 GM TABLET (FP) PO SCH (11:51)
[2025-04-29 11:54] LABS: URINE APPEARANCE CLEAR; URINE BILIRUBIN NEGATIVE (NEGATIVE); URINE COLOR YELLOW; URINE GLUCOSE (UA) NEGATIVE (NEGATIVE); URINE KETONE NEGATIVE (NEGATIVE); URINE LEUK ESTERASE NEGATIVE (NEGATIVE); URINE NITRITE NEGATIVE (NEGATIVE); URINE PROTEIN NEGATIVE (NEGATIVE); URINE UROBILINOGEN 0.2 mg/dL (0.2-1.0)
[2025-04-29] MEDS ORDERED: SUCRALFATE 1 GM TABLET (FP) ONE (11:54)
[2025-04-29] MEDS: MAG HYDROX/AL HYDROX/SIMETH 30 ML UNIT-DOSE CUP PO ONE (11:55)
[2025-04-29] MEDS ORDERED: MAG HYDROX/AL HYDROX/SIMETH 30 ML UNIT-DOSE CUP ONE (11:55)
[2025-04-29] MEDS: SUCRALFATE 1 GM TABLET (FP) PO ONE (11:56)
[2025-04-29 12:03] LABS: HCG,QUALITATIVE URINE Negative
[2025-04-29 12:06] VITALS: BP 139/94; PULSE 64; RESP 15
== END 2025-04-29 12:14 | disposition home or self-care (01) ==
LOC: JER 07:59
PROC: 3E033GC Introduction of Other Therapeutic Substance into Peripheral Vein, Percutaneous Approach (ICD-10-PCS; principal; 2025-04-29)
PROC: 3E033NZ Introduction of Analgesics, Hypnotics, Sedatives into Peripheral Vein, Percutaneous Approach (ICD-10-PCS; 2025-04-29)
DX: K29.70 Gastritis, unspecified, without bleeding (principal); R10.11 Right upper quadrant pain; R10.13 Epigastric pain; R07.89 Other chest pain; R42 Dizziness and giddiness
CPT/HCPCS: 36415; 71046-TC-FY; 74177-TC; 80053; 81003; 83735; 84484; 84703; 85027; 85610; 85730; 86803; 87086; 87389; 93005; 93010; 99285-25; Q9967